=== PATIENT | male | born 1975 | race Caucasian/White ===

== ENCOUNTER 2020-04-29 19:46 | Emergency (ER) | payer OTHER ==
[~2020-04-29 19:46] MED LIST: KEFLEX500 MG PO
[2020-04-29] MEDS ORDERED: PERCOCET 5-3251 EACH PO (21:11)
== END 2020-04-29 21:43 | disposition home or self-care (01) ==
LOC: FER 19:46
DX: S68.621A Partial traumatic transphalangeal amputation of left index finger, initial encounter (principal); W27.0XXA Contact with workbench tool, initial encounter; Y92.009 Unspecified place in unspecified non-institutional (private) residence as the place of occurrence of the external cause
CPT/HCPCS: 73140; 96372; J0690; J1885

== ENCOUNTER 2021-01-27 00:27 | Emergency (ER) | payer OTHER ==
[~2021-01-27 00:27] MED LIST changes: +PERCOCET 5-3251 EACH PO
[2021-01-27 02:06] LABS: BILIRUBIN NEGATIVE (NEGATIVE); BLOOD 3+ Ery/uL (NEGATIVE); CLARITY CLEAR (CLEAR); COLOR YELLOW (YELLOW); GLUCOSE (U) NORMAL (NORMAL); LEUKOCYTES TRACE Leu/uL (NEGATIVE); NITRITE NEGATIVE (NEGATIVE); PROTEIN NEGATIVE (NEGATIVE); SPECIFIC GRAVITY 1.025 (1.001-1.030); UROBILINOGEN 0.2 mg/dL (0.2-1.0)
[2021-01-27 02:11] LABS: URINARY RBC 20-50
[2021-01-27 02:12] LABS: MUCOUS MODERATE
[2021-01-27 02:16] LABS: BASOPHIL 0.3 % (0-2); EOSINOPHIL 1.8 % (0-5); HCT 39.2 % (42.0-52.0); HGB 12.9 g/dl (13.2-18.0); LYMPHOCYTE 12.1 % (15-48); MCH 29.7 pg (25.0-31.0); MCHC 32.9 g/dL (32.0-36.0); MCV 90.3 fL (78.0-100.0); MONOCYTE 6.8 % (0-12); NEUTROPHIL 78.7 % (41-80); NRBC 0; PLT 179 K/uL (150-400); RBC 4.34 M/uL (4.70-6.00); RDW 12.5 % (11.5-14.0); WBC 9.5 K/uL (4.0-10.5)
[2021-01-27 02:41] LABS: ALBUMIN 4.2 g/dL (3.4-5.0); BILIRUBIN - TOTAL 0.5 mg/dL (0.2-1.0); BUN/CREAT RATIO (CALC) 15.3 RATIO; CREATININE 1.7 mg/dL (0.67-1.17); GLOBULIN (CALCULATION) 3.1 g/dL; POTASSIUM 4.2 mmol/L (3.5-5.1); TOTAL PROTEIN 7.3 g/dL (6.4-8.2)
[2021-01-27] MEDS ORDERED: ONDANSETRON ODT4 MG SL (03:52)
[2021-01-27] MEDS ORDERED: PERCOCET 5-3251 EACH PO (03:52)
[2021-01-27] MEDS ORDERED: FLOMAX0.4 MG PO (03:52)
== END 2021-01-27 04:06 | disposition home or self-care (01) ==
LOC: FER 00:27
PROVIDERS: Emergency Medicine Emergency Medical Services
DX: N13.2 Hydronephrosis with renal and ureteral calculous obstruction (principal); Z90.49 Acquired absence of other specified parts of digestive tract
CPT/HCPCS: 36415; 80053; 81001; 85025; J1885